=== PATIENT | female | born 1980 | race Caucasian/White ===

== ENCOUNTER 2016-09-23 02:25 | Emergency (ER) | payer BC ==
[~2016-09-23] VITALS: Ht 157.4 cm; Wt 74.8 kg
[~2016-09-23 02:25] MED LIST: 'PARAFON FORTE500 M1 PO; ALBUTEROL0.09 MG/A2 IH; ALLEGRA ALLERGY60 M2 PO; AMBIEN5 MG PO; AMITRIPTYLINE25 MG PO; AMOXICILLIN500 M2 PO; ANAPROX DS550 MG PO; ANTIVERT/2525 M1 PO; CIPRO500 MG PO; CYCLOBENZAPRINE10 MG PO; CYCLOBENZAPRINE5 M3 PO; CYMBALTA60 MG PO; FLEXERIL10 MG; FLEXERIL5 MG PO; HYDROCODONE BIT1 T11 PO; IBUPROFEN600 MG PO; LYRICA75 M1 PO; MEDROL DOSEPAK4 MG PO; MOTRIN800 MG PO; NAPROSYN500 MG PO; NKHM PO; Orphenadrine C100 MG PO; PEPCID20 MG PO; PREDNICOT20 MG PO; PREDNISONE10 MG PO; PREDNISONE20 MG PO; PREDNISONE50 MG PO; PROVERA5 MG PO; ULTRAM50 MG PO; VICODIN 5/500 505 MG PO; VICODIN 500 MG-1 TAB PO; VICODIN ES 7501 TAB PO; ZITHROMAX Z PA250 MG PO; ZOFRAN ODT4 MG SL; ZYRTEC10 MG PO
[2016-09-23] MEDS ORDERED: Orphenadrine C100 MG PO (03:38)
[2016-09-23] MEDS ORDERED: NORCO 5-325 TA1 EACH PO (03:38)
[2016-09-23] MEDS ORDERED: PREDNISONE10 MG PO (03:38)
== END 2016-09-23 04:07 | disposition home or self-care (01) ==
LOC: ED 02:25
DX: M79.7 Fibromyalgia (principal); F17.200 Nicotine dependence, unspecified, uncomplicated; Z79.899 Other long term (current) drug therapy; Z88.1 Allergy status to other antibiotic agents; Z88.2 Allergy status to sulfonamides

== ENCOUNTER 2016-11-24 20:35 | Emergency (ER) | payer BC ==
[~2016-11-24] VITALS: Ht 157.4 cm
[~2016-11-24 20:35] MED LIST changes: +NORCO 5-325 TA1 EACH PO
[2016-11-24 21:18] LABS: BASO # 0.1 10*3/uL (0.0-0.1); BASO % 0.7 % (0.0-1.0); EOS # 0.1 10*3/uL (0.0-0.4); EOS % 1.1 % (1.0-4.0); HEMATOCRIT 35.9 % (37.0-47.0); HEMOGLOBIN 12.5 g/dl (12.0-16.0); LYMPH # 1.8 10*3/uL (1.3-4.4); LYMPH % 25.3 % (27.0-41.0); MEAN CORPUSCULAR HGB 33.8 pg (27.0-31.0); MEAN CORPUSCULAR HGB CONC 34.8 g/dl (33.0-37.0); MEAN PLATELET VOLUME 9.7 fl (9.6-12.3); MONO # 0.5 10*3/uL (0.1-1.0); MONO % 6.9 % (3.0-9.0); NEUT # 4.7 10*3/uL (2.3-7.9); NEUT % 65.9 % (47.0-73.0); PLATELET COUNT AUTOMATED 249 10*3/uL (130-400); RED CELL DISTRI WIDTH 11.9 % (0-14.5); WHITE BLOOD COUNT 7.1 10*3/uL (4.8-10.8)
[2016-11-24 21:29] LABS: BILIRUBIN NEGATIVE (NEGATIVE); BLOOD 3+ (NEGATIVE); CLARITY CLEAR (CLEAR); COLOR YELLOW (YELLOW); GLUCOSE NEGATIVE (NEGATIVE); KETONE NEGATIVE (NEGATIVE); LEUKO ESTERASE NEGATIVE (NEGATIVE); NITRITE NEGATIVE (NEGATIVE); PH 5.5 (5.0-9.0); PROTEIN NEGATIVE (NEGATIVE); SPECIFIC GRAVITY <= 1.005 (1.005-1.030); UROBILINOGEN 0.2 E.U./dl (0.2-1.0)
[2016-11-24 21:34] LABS: ALBUMIN 4.2 gm/dl (3.1-4.5); ALKALINE PHOSPHATASE 73 U/L (45-117); BILIRUBIN, TOTAL 0.4 mg/dl (0.2-1.0); BUN 7 mg/dl (7-24); CARBON DIOXIDE 27 mmol/L (21-32); CHLORIDE 105 mmol/L (98-107); EST GLOM FILT AFRICAN AMERICAN > 60 ml/min; GLUCOSE 105 mg/dL (65-99); POTASSIUM 3.8 mmol/L (3.5-5.1); SGOT/AST 18 IU/L (3-35); SGPT/ALT 33 U/L (12-78); SODIUM 142 mmol/L (136-145); TOTAL PROTEIN 7.5 gm/dL (6.4-8.2)
[2016-11-24 21:36] LABS: BACTERIA 2+; URINE REFLEX COMMENT YES (NO); WBC 0-2 wbc/hpf (0-5)
[2016-11-24] MEDS ORDERED: PERCOCET 325 MG1 TA2 PO (22:41)
[2016-11-24] MEDS ORDERED: ZOFRAN ODT4 MG SL (22:41)
== END 2016-11-24 22:52 | disposition home or self-care (01) ==
LOC: ED 20:35
PROVIDERS: Physician Assistant
DX: N20.0 Calculus of kidney (principal); F17.200 Nicotine dependence, unspecified, uncomplicated; Z88.2 Allergy status to sulfonamides; Z88.1 Allergy status to other antibiotic agents; Z79.899 Other long term (current) drug therapy; Z87.442 Personal history of urinary calculi

== ENCOUNTER 2017-02-20 01:21 | Emergency (ER) | payer BC ==
[~2017-02-20] VITALS: Ht 157.4 cm; Wt 79.4 kg
[~2017-02-20 01:21] MED LIST changes: +PERCOCET 325 MG1 TA2 PO
[2017-02-20 02:22] LABS: BILIRUBIN NEGATIVE (NEGATIVE); BLOOD TRACE-INTACT (NEGATIVE); CLARITY CLEAR (CLEAR); COLOR YELLOW (YELLOW); GLUCOSE NEGATIVE (NEGATIVE); KETONE NEGATIVE (NEGATIVE); LEUKO ESTERASE NEGATIVE (NEGATIVE); NITRITE NEGATIVE (NEGATIVE); PH 5.5 (5.0-9.0); PROTEIN NEGATIVE (NEGATIVE); UROBILINOGEN 0.2 E.U./dl (0.2-1.0)
[2017-02-20] MEDS ORDERED: KETOROLAC10 MG PO (02:25)
[2017-02-20] MEDS ORDERED: Orphenadrine C100 MG PO (02:25)
[2017-02-20] MEDS ORDERED: PREDNISONE10 MG PO (02:25)
[2017-02-20] MEDS ORDERED: HYDROCODONE BIT1 T11 PO (02:25)
[2017-02-20 02:28] LABS: URINE REFLEX COMMENT NO (NO); WBC 0-2 wbc/hpf (0-5)
== END 2017-02-20 02:58 | disposition home or self-care (01) ==
LOC: ED 01:21
PROVIDERS: Emergency Medicine Emergency Medical Services
DX: M79.7 Fibromyalgia (principal); M54.5 Low back pain; M54.2 Cervicalgia; M25.552 Pain in left hip; M25.551 Pain in right hip; F17.200 Nicotine dependence, unspecified, uncomplicated; Z88.1 Allergy status to other antibiotic agents; Z88.2 Allergy status to sulfonamides; Z79.899 Other long term (current) drug therapy

== ENCOUNTER 2017-04-10 00:54 | Emergency (ER) | payer BC ==
[~2017-04-10] VITALS: Ht 157.4 cm; Wt 81.6 kg
[~2017-04-10 00:54] MED LIST changes: +KETOROLAC10 MG PO
[2017-04-10] MEDS ORDERED: Orphenadrine C100 MG PO (02:56)
[2017-04-10] MEDS ORDERED: PREDNISONE10 MG PO (02:56)
[2017-04-10] MEDS ORDERED: KETOROLAC10 MG PO (02:56)
[2017-04-10] MEDS ORDERED: NORCO 5-325 TA1 EACH PO (02:56)
== END 2017-04-10 03:30 | disposition home or self-care (01) ==
LOC: ED 00:54
DX: M79.7 Fibromyalgia (principal); F17.200 Nicotine dependence, unspecified, uncomplicated; Z88.1 Allergy status to other antibiotic agents; Z88.2 Allergy status to sulfonamides

== ENCOUNTER 2017-05-02 01:31 | Emergency (ER) | payer BC ==
[~2017-05-02] VITALS: Ht 157.4 cm; Wt 77.1 kg
== END 2017-05-02 03:56 | disposition home or self-care (01) ==
LOC: ED 01:31
DX: T78.40XA Allergy, unspecified, initial encounter (principal); F17.200 Nicotine dependence, unspecified, uncomplicated; Z88.2 Allergy status to sulfonamides; Z88.1 Allergy status to other antibiotic agents; Z79.899 Other long term (current) drug therapy; X58.XXXA Exposure to other specified factors, initial encounter

== ENCOUNTER 2017-07-07 19:05 | Emergency (ER) | payer BC ==
[~2017-07-07] VITALS: Wt 77.1 kg
[2017-07-07] MEDS ORDERED: CYCLOBENZAPRINE10 MG PO (19:22)
[2017-07-07] MEDS ORDERED: NAPROSYN500 MG PO (19:22)
== END 2017-07-07 19:31 | disposition home or self-care (01) ==
LOC: ED 19:05
DX: M79.7 Fibromyalgia (principal); F17.200 Nicotine dependence, unspecified, uncomplicated; Z98.51 Tubal ligation status; Z98.890 Other specified postprocedural states; Z79.899 Other long term (current) drug therapy; Z88.2 Allergy status to sulfonamides; Z88.1 Allergy status to other antibiotic agents; Z88.8 Allergy status to other drugs, medicaments and biological substances

== ENCOUNTER 2017-07-26 02:28 | Emergency (ER) | payer BC ==
[~2017-07-26] VITALS: Ht 157.4 cm; Wt 79.4 kg
[2017-07-26] MEDS ORDERED: PREDNISONE10 MG PO (02:34)
[2017-07-26] MEDS ORDERED: Orphenadrine C100 MG PO (03:17)
[2017-07-26] MEDS ORDERED: NORCO 5-325 TA1 EACH PO (03:17)
[2017-07-26] MEDS ORDERED: KETOROLAC10 MG PO (03:18)
== END 2017-07-26 04:08 | disposition home or self-care (01) ==
LOC: ED 02:28
DX: G89.29 Other chronic pain (principal); M79.7 Fibromyalgia; F17.200 Nicotine dependence, unspecified, uncomplicated; Z88.2 Allergy status to sulfonamides; Z88.1 Allergy status to other antibiotic agents

== ENCOUNTER 2017-10-17 19:30 | Emergency (ER) | payer BC ==
[~2017-10-17] VITALS: Ht 157.4 cm; Wt 79.4 kg
[2017-10-17] MEDS ORDERED: ANAPROX DS550 MG PO (20:15)
[2017-10-17] MEDS ORDERED: ROBAXIN500 M1 PO (20:15)
== END 2017-10-17 20:25 | disposition home or self-care (01) ==
LOC: ED 19:30
DX: S46.811A Strain of other muscles, fascia and tendons at shoulder and upper arm level, right arm, initial encounter (principal); M54.2 Cervicalgia; F17.200 Nicotine dependence, unspecified, uncomplicated; Z88.1 Allergy status to other antibiotic agents; Z88.2 Allergy status to sulfonamides; Z79.899 Other long term (current) drug therapy; X58.XXXA Exposure to other specified factors, initial encounter; Y93.89 Activity, other specified; Y92.89 Other specified places as the place of occurrence of the external cause; Y99.8 Other external cause status

== ENCOUNTER 2017-10-22 10:12 | Emergency (ER) | payer BC ==
[~2017-10-22 10:12] MED LIST changes: +ROBAXIN500 M1 PO
== END 2017-10-22 11:17 | disposition home or self-care (01) ==
LOC: ED 10:12
DX: M54.6 Pain in thoracic spine (principal); M79.7 Fibromyalgia; F17.200 Nicotine dependence, unspecified, uncomplicated; Z88.2 Allergy status to sulfonamides; Z88.8 Allergy status to other drugs, medicaments and biological substances; Z79.899 Other long term (current) drug therapy

== ENCOUNTER 2018-02-18 16:03 | Emergency (ER) | payer BC ==
[~2018-02-18] VITALS: Ht 157.4 cm; Wt 79.4 kg
== END 2018-02-18 16:22 | disposition home or self-care (01) ==
LOC: ED 16:03
DX: S61.213A Laceration without foreign body of left middle finger without damage to nail, initial encounter (principal); Z23 Encounter for immunization; Z88.2 Allergy status to sulfonamides; Z88.1 Allergy status to other antibiotic agents; Z79.899 Other long term (current) drug therapy; Z98.51 Tubal ligation status; W26.8XXA Contact with other sharp object(s), not elsewhere classified, initial encounter; Y93.G9 Activity, other involving cooking and grilling; Y92.89 Other specified places as the place of occurrence of the external cause; Y99.8 Other external cause status

== ENCOUNTER 2018-03-08 02:11 | Emergency (ER) | payer BC ==
[~2018-03-08] VITALS: Ht 157.4 cm; Wt 81.6 kg
[2018-03-08] MEDS ORDERED: PREDNISONE10 MG PO (03:14)
[2018-03-08] MEDS ORDERED: NORCO 5-325 TA1 EACH PO (03:14)
[2018-03-08] MEDS ORDERED: Orphenadrine C100 MG PO (03:14)
== END 2018-03-08 03:44 | disposition home or self-care (01) ==
LOC: ED 02:11
DX: M79.7 Fibromyalgia (principal); G89.29 Other chronic pain; G43.909 Migraine, unspecified, not intractable, without status migrainosus; Z88.2 Allergy status to sulfonamides; Z88.1 Allergy status to other antibiotic agents; Z79.899 Other long term (current) drug therapy; Z98.51 Tubal ligation status

== ENCOUNTER 2018-05-08 21:04 | Emergency (ER) | payer BC ==
[~2018-05-08] VITALS: Ht 157.4 cm; Wt 81.6 kg
--- NOTE | ~2018-05-08 | EKG ---
[place], [place] ELECTROCARDIOGRAM REPORT NAME: ADDY HUBBARD UNIT #: [id number] ROOM: DOCTOR: EPIPHANY DRAFT REPORT BIRTHDATE: [birth year] [facility] Test Date: 2018-05-08 Test Time: 22:17:16 Pat Name: ADDY HUBBARD Department: Room: Gender: F Medical Collections Specialist: Tonya Bruno : 1980 Requested By: DENG WRIGHT Order Number: [id number] Reading MD: Erwin Castañeda MD Measurements Intervals [place] Rate: 84 P: 23 LA: 127 QRS: 16 QRSD: 76 T: -11 QT: 398 QTc: 471 Interpretive Statements Sinus rhythm Borderline T abnormalities, diffuse leads Electronically Signed On 05-10-2018 13:38:05 PDT by Erwin Castañeda MD CM:EKGRPT:ELECTROCARDIOGRAM REPORT [id number] DENG CAMARGO DRAFT REPORT DENG WRIGHT DO
[2018-05-08 21:31] LABS: BASO # 0.1 10*3/uL (0.0-0.1); BASO % 0.4 % (0.0-1.0); EOS # 0.1 10*3/uL (0.0-0.4); EOS % 1.2 % (1.0-4.0); HEMATOCRIT 35.9 % (37.0-47.0); HEMOGLOBIN 12.6 g/dl (12.0-16.0); LYMPH % 26.4 % (27.0-41.0); MEAN CELL VOLUME 95.7 fl (81.0-99.0); MEAN CORPUSCULAR HGB 33.6 pg (27.0-31.0); MEAN CORPUSCULAR HGB CONC 35.1 g/dl (33.0-37.0); MEAN PLATELET VOLUME 10.3 fl (9.6-12.3); MONO # 0.8 10*3/uL (0.1-1.0); MONO % 6.9 % (3.0-9.0); NEUT # 7.3 10*3/uL (2.3-7.9); NEUT % 64.7 % (47.0-73.0); PLATELET COUNT AUTOMATED 307 10*3/uL (130-400); RED BLOOD COUNT 3.75 10*6/uL (4.10-5.10); RED CELL DISTRI WIDTH 12.5 % (0-14.5); WHITE BLOOD COUNT 11.3 10*3/uL (4.8-10.8)
[2018-05-08 21:50] LABS: ALBUMIN 3.8 gm/dl (3.1-4.5); ALKALINE PHOSPHATASE 64 U/L (45-117); BUN 11 mg/dl (7-24); CHLORIDE 106 mmol/L (98-107); CREATININE 1.07 mg/dL (0.55-1.02); LIPASE 173 U/L (73-393); POTASSIUM 2.8 mmol/L (3.5-5.1); SGOT/AST 10 IU/L (3-35); SGPT/ALT 30 U/L (12-78); SODIUM 143 mmol/L (136-145)
[2018-05-08 21:53] LABS: BETA-HCG, QUANT < 1.0 mIU/mL (1-3)
[2018-05-08 22:07] LABS: BILIRUBIN NEGATIVE (NEGATIVE); BLOOD 3+ (NEGATIVE); CLARITY CLEAR (CLEAR); COLOR YELLOW (YELLOW); GLUCOSE NEGATIVE (NEGATIVE); KETONE NEGATIVE (NEGATIVE); LEUKO ESTERASE NEGATIVE (NEGATIVE); NITRITE NEGATIVE (NEGATIVE); UROBILINOGEN 0.2 E.U./dl (0.2-1.0)
[2018-05-08 22:22] LABS: TROPONIN I < 0.015 ng/ml (<0.045)
== END 2018-05-09 00:01 | disposition home or self-care (01) ==
LOC: ED 21:04
PROVIDERS: Student in an Organized Health Care Education/Training Program
DX: E87.6 Hypokalemia (principal); R33.9 Retention of urine, unspecified; R10.9 Unspecified abdominal pain; F17.200 Nicotine dependence, unspecified, uncomplicated; Z88.1 Allergy status to other antibiotic agents; Z88.2 Allergy status to sulfonamides; Z87.442 Personal history of urinary calculi

== ENCOUNTER 2018-07-10 17:36 | Emergency (ER) | payer BC ==
[~2018-07-10] VITALS: Ht 157.4 cm; Wt 81.6 kg
[2018-07-10] MEDS ORDERED: LYRICA50 M1 PO (17:47)
[2018-07-10] MEDS ORDERED: CYCLOBENZAPRINE10 MG PO (20:21)
[2018-07-10] MEDS ORDERED: NAPROSYN500 MG PO (20:21)
[2018-07-10] MEDS ORDERED: MEDROL DOSEPAK4 MG PO (20:21)
== END 2018-07-10 20:40 | disposition home or self-care (01) ==
LOC: ED 17:36
DX: S46.912A Strain of unspecified muscle, fascia and tendon at shoulder and upper arm level, left arm, initial encounter (principal); M62.838 Other muscle spasm; G89.29 Other chronic pain; M79.7 Fibromyalgia; Z88.2 Allergy status to sulfonamides; Z79.899 Other long term (current) drug therapy; X58.XXXA Exposure to other specified factors, initial encounter; Y93.89 Activity, other specified; Y92.89 Other specified places as the place of occurrence of the external cause; Y99.8 Other external cause status

== ENCOUNTER 2018-07-24 04:05 | Emergency (ER) | payer BC ==
[~2018-07-24] VITALS: Ht 157.4 cm; Wt 81.6 kg
[~2018-07-24 04:05] MED LIST changes: +LYRICA50 M1 PO
== END 2018-07-24 04:41 | disposition home or self-care (01) ==
LOC: ED 04:05
DX: F45.8 Other somatoform disorders (principal); R21 Rash and other nonspecific skin eruption; Z88.2 Allergy status to sulfonamides; Z79.899 Other long term (current) drug therapy

== ENCOUNTER 2018-09-04 22:50 | Emergency (ER) | payer BC | END 2018-09-04 23:25 | disposition home or self-care (01) | LOC: ED 22:50 | DX: M79.7 Fibromyalgia (principal); M54.9 Dorsalgia, unspecified; M54.2 Cervicalgia; M25.511 Pain in right shoulder; M25.512 Pain in left shoulder; G89.29 Other chronic pain; Z88.2 Allergy status to sulfonamides; Z79.899 Other long term (current) drug therapy ==

== ENCOUNTER 2019-04-06 23:48 | Emergency (ER) | payer BC ==
[~2019-04-06] VITALS: Ht 157.4 cm; Wt 81.6 kg
[2019-04-06] MEDS ORDERED: ALLEGRA-D 24 H1 EACH PO (23:51)
[2019-04-07 00:40] LABS: BILIRUBIN NEGATIVE (NEGATIVE); BLOOD 3+ (NEGATIVE); CLARITY CLEAR (CLEAR); COLOR YELLOW (YELLOW); GLUCOSE NEGATIVE (NEGATIVE); KETONE NEGATIVE (NEGATIVE); LEUKO ESTERASE NEGATIVE (NEGATIVE); NITRITE NEGATIVE (NEGATIVE); SPECIFIC GRAVITY >= 1.030 (1.005-1.030); UROBILINOGEN 0.2 E.U./dl (0.2-1.0)
[2019-04-07 00:51] LABS: BACTERIA 2+; EPITHELIAL CELLS 21-30
[2019-04-07] MEDS ORDERED: CEPHALEXIN500 M1 PO (01:02)
== END 2019-04-07 01:40 | disposition home or self-care (01) ==
LOC: ED 23:48
PROVIDERS: Physician Assistant
DX: N39.0 Urinary tract infection, site not specified (principal); J32.9 Chronic sinusitis, unspecified; Z79.899 Other long term (current) drug therapy; Z88.2 Allergy status to sulfonamides

== ENCOUNTER 2019-07-07 22:16 | Emergency (ER) | payer BC ==
[~2019-07-07] VITALS: Ht 157.4 cm; Wt 83.0 kg
[~2019-07-07 22:16] MED LIST changes: +ALLEGRA-D 24 H1 EACH PO; +CEPHALEXIN500 M1 PO
== END 2019-07-07 22:58 | disposition home or self-care (01) ==
LOC: ED 22:16
DX: R13.10 Dysphagia, unspecified (principal); F17.200 Nicotine dependence, unspecified, uncomplicated; Z79.899 Other long term (current) drug therapy; Z88.2 Allergy status to sulfonamides

== ENCOUNTER 2021-11-15 08:41 | Emergency (ER) | payer BC ==
[~2021-11-15] VITALS: Ht 157.4 cm; Wt 86.2 kg
[2021-11-15] MEDS ORDERED: PREDNISONE50 MG PO (11:09)
== END 2021-11-15 11:15 | disposition home or self-care (01) ==
LOC: ED 08:41
DX: M79.7 Fibromyalgia (principal); M25.552 Pain in left hip; M79.605 Pain in left leg; Z88.1 Allergy status to other antibiotic agents; Z79.899 Other long term (current) drug therapy; Z98.890 Other specified postprocedural states; F17.200 Nicotine dependence, unspecified, uncomplicated

== ENCOUNTER 2021-11-20 14:01 | Emergency (ER) | payer BC ==
[~2021-11-20] VITALS: Wt 83.9 kg
[2021-11-20] MEDS ORDERED: PREDNISONE10 MG PO (15:48)
[2021-11-20] MEDS ORDERED: CYCLOBENZAPRINE5 M3 PO (15:48)
== END 2021-11-20 15:55 | disposition home or self-care (01) ==
LOC: ED 14:01
DX: M54.16 Radiculopathy, lumbar region (principal); Z88.2 Allergy status to sulfonamides; Z88.1 Allergy status to other antibiotic agents; Z79.899 Other long term (current) drug therapy; Z98.890 Other specified postprocedural states; Z98.51 Tubal ligation status

== ENCOUNTER 2023-01-01 16:43 | Emergency (ER) | payer BC ==
[~2023-01-01] VITALS: Ht 157.4 cm; Wt 88.5 kg
[~2023-01-01 16:43] MED LIST changes: +B121000 MCG/1 IM; +METRONIDAZOLE500 M1 PO; +Synthroid,Levo25 MCG PO; +TOPIRAMATE25 M3 PO; +VITAMIN D-40010 MCG GT
[2023-01-01] MEDS ORDERED: NAPROXEN250 MG PO (17:12)
== END 2023-01-01 17:15 | disposition home or self-care (01) ==
LOC: ED 16:43
DX: S60.221A Contusion of right hand, initial encounter (principal); Z88.2 Allergy status to sulfonamides; Z88.1 Allergy status to other antibiotic agents; Z79.899 Other long term (current) drug therapy; Z98.51 Tubal ligation status; Z98.890 Other specified postprocedural states; Z87.891 Personal history of nicotine dependence; W22.8XXA Striking against or struck by other objects, initial encounter; Y93.89 Activity, other specified; Y92.89 Other specified places as the place of occurrence of the external cause; Y99.8 Other external cause status

== ENCOUNTER 2023-06-29 16:27 | Emergency (ER) | payer BC ==
[~2023-06-29] VITALS: Wt 86.2 kg
[~2023-06-29 16:27] MED LIST changes: +NAPROXEN250 MG PO
[2023-06-29 17:39] LABS: BASO # 0.1 10*3/uL (0.0-0.1); EOS # 0.3 10*3/uL (0.0-0.4); EOS % 3.4 % (1.0-4.0); HEMATOCRIT 36.9 % (37.0-47.0); LYMPH # 1.6 10*3/uL (1.3-4.4); LYMPH % 19.9 % (27.0-41.0); MEAN CELL VOLUME 94.4 fl (81.0-99.0); MEAN CORPUSCULAR HGB 32.5 pg (27.0-31.0); MEAN CORPUSCULAR HGB CONC 34.4 g/dl (33.0-37.0); MEAN PLATELET VOLUME 9.9 fl (9.6-12.3); MONO # 0.5 10*3/uL (0.1-1.0); MONO % 5.6 % (3.0-9.0); NEUT # 5.6 10*3/uL (2.3-7.9); NEUT % 69.8 % (47.0-73.0); PLATELET COUNT AUTOMATED 328 10*3/uL (130-400); RED BLOOD COUNT 3.91 10*6/uL (4.10-5.10); RED CELL DISTRI WIDTH 13.3 % (0-14.5)
[2023-06-29 17:40] LABS: BILIRUBIN Negative (Negative); BLOOD 3+ (Negative); CLARITY Clear (Clear); COLOR Orange (Yellow); GLUCOSE Negative (Negative); KETONE Negative (Negative); LEUKO ESTERASE 1+ (Negative); NITRITE Positive (Negative); PH 5.5 (4.5-8.0)
[2023-06-29 17:48] LABS: BACTERIA 2+; MUCOUS 1+; RBC 21-30 rbc/hpf (0-2)
[2023-06-29 17:59] LABS: ALKALINE PHOSPHATASE 64 U/L (46-116); BUN 8 mg/dl (9-23); CHLORIDE 110 mmol/L (98-107); POTASSIUM 3.6 mmol/L (3.4-5.1); SGPT/ALT 65 U/L (5-49); TOTAL PROTEIN 7.2 gm/dL (6.0-8.0)
[2023-06-29] MEDS ORDERED: FLOMAX0.4 MG PO (20:16)
[2023-06-29] MEDS ORDERED: HYDROCODONE-AC1 EAC1 PO (20:16)
[2023-06-29] MEDS ORDERED: CIPRO500 MG PO (20:16)
== END 2023-06-29 20:42 | disposition home or self-care (01) ==
LOC: ED 16:27
PROVIDERS: Internal Medicine
DX: N13.2 Hydronephrosis with renal and ureteral calculous obstruction (principal); N17.9 Acute kidney failure, unspecified; N13.4 Hydroureter; N39.0 Urinary tract infection, site not specified; F17.200 Nicotine dependence, unspecified, uncomplicated; Z88.2 Allergy status to sulfonamides; Z79.899 Other long term (current) drug therapy; Z98.890 Other specified postprocedural states; Z98.51 Tubal ligation status

== ENCOUNTER 2024-01-01 12:26 | Emergency (ER) | payer BC ==
[~2024-01-01] VITALS: Ht 157.4 cm; Wt 83.9 kg
[~2024-01-01 12:26] MED LIST changes: +FLOMAX0.4 MG PO; +HYDROCODONE-AC1 EAC1 PO
[2024-01-01] MEDS ORDERED: Ketorolac Tromethamine 30 MG/ML VIAL IV ONE (12:55)
[2024-01-01] MEDS ORDERED: SODIUM CHLORIDE 0.9% 1,000 ML IV ONE (12:55)
[2024-01-01 13:10] LABS: BASO # 0.1 10*3/uL (0.0-0.1); BASO % 0.7 % (0.0-1.0); EOS # 0.2 10*3/uL (0.0-0.4); EOS % 2.2 % (1.0-4.0); HEMATOCRIT 37.9 % (37.0-47.0); LYMPH # 1.6 10*3/uL (1.3-4.4); LYMPH % 23.5 % (27.0-41.0); MEAN CELL VOLUME 96.2 fl (81.0-99.0); MEAN CORPUSCULAR HGB 32.7 pg (27.0-31.0); MEAN PLATELET VOLUME 9.8 fl (9.6-12.3); MONO # 0.5 10*3/uL (0.1-1.0); NEUT # 4.6 10*3/uL (2.3-7.9); NEUT % 66.3 % (47.0-73.0); PLATELET COUNT AUTOMATED 266 10*3/uL (130-400); RED BLOOD COUNT 3.94 10*6/uL (4.10-5.10); RED CELL DISTRI WIDTH 12.9 % (0-14.5); WHITE BLOOD COUNT 6.9 10*3/uL (4.8-10.8)
[2024-01-01 13:30] LABS: ALKALINE PHOSPHATASE 79 U/L (46-116); BUN 8 mg/dl (9-23); CHLORIDE 106 mmol/L (98-107); LIPASE 47 U/L (12-53); POTASSIUM 3.6 mmol/L (3.4-5.1); SGPT/ALT 27 U/L (5-49); TOTAL PROTEIN 6.9 gm/dL (6.0-8.0)
[2024-01-01 13:42] LABS: BILIRUBIN Negative (Negative); BLOOD Negative (Negative); CLARITY Clear (Clear); COLOR Yellow (Yellow); GLUCOSE Negative (Negative); KETONE Negative (Negative); LEUKO ESTERASE Negative (Negative); NITRITE Negative (Negative); SPECIFIC GRAVITY <= 1.005 (1.001-1.030); UROBILINOGEN 0.2 E.U./dl (0.0-1.0)
[2024-01-01 13:49] LABS: BACTERIA 1+; RBC 0-2 rbc/hpf (0-2)
== END 2024-01-01 15:02 | disposition home or self-care (01) ==
LOC: ED 12:26
PROVIDERS: Physician Assistant Medical
DX: R10.31 Right lower quadrant pain (principal); J45.909 Unspecified asthma, uncomplicated; M79.7 Fibromyalgia; E03.9 Hypothyroidism, unspecified; Z87.442 Personal history of urinary calculi; Z88.2 Allergy status to sulfonamides; Z88.8 Allergy status to other drugs, medicaments and biological substances; Z98.51 Tubal ligation status; Z98.890 Other specified postprocedural states; F17.200 Nicotine dependence, unspecified, uncomplicated; F12.90 Cannabis use, unspecified, uncomplicated

== ENCOUNTER 2024-05-02 01:36 | Emergency (ER) | payer BC ==
[~2024-05-02] VITALS: Ht 157.4 cm; Wt 86.2 kg
[2024-05-02] MEDS ORDERED: Ketorolac Tromethamine 30 MG/ML VIAL IV ONE (01:50)
[2024-05-02] MEDS ORDERED: SODIUM CHLORIDE 0.9% 1,000 ML IV ONE (01:50)
[2024-05-02] MEDS ORDERED: Ondansetron Hydrochloride 4 MG/2 ML VIAL IV ONE (01:50)
[2024-05-02] MEDS ORDERED: diphenhydrAMINE hydrochloride 50 MG/ML VIAL IV ONE (01:50)
== END 2024-05-02 03:36 | disposition home or self-care (01) ==
LOC: ED 01:36
DX: G43.909 Migraine, unspecified, not intractable, without status migrainosus (principal); R42 Dizziness and giddiness; F17.200 Nicotine dependence, unspecified, uncomplicated; Z88.2 Allergy status to sulfonamides; Z79.2 Long term (current) use of antibiotics; Z79.899 Other long term (current) drug therapy; Z98.890 Other specified postprocedural states; Z98.51 Tubal ligation status

== ENCOUNTER 2024-06-30 04:47 | Emergency (ER) | payer BC ==
[~2024-06-30] VITALS: Wt 86.2 kg
[2024-06-30] MEDS ORDERED: NURTEC ODT75 MG PO (04:57)
[2024-06-30] MEDS ORDERED: NORETHINDRONE0.35 M1 PO (04:57)
[2024-06-30] MEDS ORDERED: Dexamethasone Sodium Phospha 20 MG/5 ML VIAL IM ONE (05:25)
[2024-06-30] MEDS ORDERED: AVPAK AZITHROM250 MG PO (05:26)
[2024-06-30] MEDS ORDERED: MEDROL DOSEPAK4 MG PO (05:26)
== END 2024-06-30 06:12 | disposition home or self-care (01) ==
LOC: ED 04:47
DX: J40 Bronchitis, not specified as acute or chronic (principal); G43.909 Migraine, unspecified, not intractable, without status migrainosus; F17.210 Nicotine dependence, cigarettes, uncomplicated; Z88.2 Allergy status to sulfonamides; Z79.899 Other long term (current) drug therapy; Z98.890 Other specified postprocedural states; Z98.51 Tubal ligation status

== ENCOUNTER 2024-11-04 02:06 | Emergency (ER) | payer BC ==
[~2024-11-04] VITALS: Ht 157.5 cm; Wt 90.7 kg
[~2024-11-04 02:06] MED LIST changes: +AVPAK AZITHROM250 MG PO; +NORETHINDRONE0.35 M1 PO; +NURTEC ODT75 MG PO
[2024-11-04] MEDS ORDERED: Dexamethasone Sodium Phospha 20 MG/5 ML VIAL IV ONE (02:55)
[2024-11-04] MEDS ORDERED: Ketorolac Tromethamine 30 MG/ML VIAL IV ONE (02:55)
[2024-11-04] MEDS ORDERED: ACETAMINOPHEN 325 MG TAB PO ONE (02:55)
[2024-11-04] MEDS ORDERED: Metoclopramide Hydrochloride 10 MG/2 ML VIAL IV ONE (02:55)
[2024-11-04] MEDS ORDERED: diphenhydrAMINE hydrochloride 50 MG/ML VIAL IV ONE (02:55)
[2024-11-04] MEDS ORDERED: SODIUM CHLORIDE 0.9% 1,000 ML IV ONE (02:55)
[2024-11-04] MEDS ORDERED: REGLAN10 M1 PO (04:31)
== END 2024-11-04 04:46 | disposition home or self-care (01) ==
LOC: ED 02:06
DX: G43.909 Migraine, unspecified, not intractable, without status migrainosus (principal); J45.909 Unspecified asthma, uncomplicated; M79.7 Fibromyalgia; Z87.442 Personal history of urinary calculi; E03.9 Hypothyroidism, unspecified; F12.90 Cannabis use, unspecified, uncomplicated; F17.200 Nicotine dependence, unspecified, uncomplicated; Z88.2 Allergy status to sulfonamides; Z88.8 Allergy status to other drugs, medicaments and biological substances; Z98.51 Tubal ligation status; Z98.890 Other specified postprocedural states